=== PATIENT | male | born 1995 | race American Indian/Alaskan Native ===

== ENCOUNTER 2021-06-28 01:47 | Outpatient (CLI) | payer SELFPAY | END 2021-06-28 01:48 | disposition EMS.NT | LOC: EMS 01:47 | DX: M25.562 Pain in left knee (principal); M25.561 Pain in right knee; V49.9XXA Car occupant (driver) (passenger) injured in unspecified traffic accident, initial encounter; Y92.413 State road as the place of occurrence of the external cause ==

== ENCOUNTER 2022-06-10 02:29 | Emergency (ER) | payer SELFPAY ==
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
[2022-06-10] MEDS ORDERED: BACITRACIN ZINC OINT 1 PACKET TOP STA (03:53)
[2022-06-10 04:02] VITALS: BP 110/68
== END 2022-06-10 04:01 | disposition home or self-care (01) ==
LOC: ED 02:29
DX: T23.211A Burn of second degree of right thumb (nail), initial encounter (principal)
CPT/HCPCS: 99282; A9270

== ENCOUNTER 2022-08-20 21:31 | Emergency (ER) | payer MEDICAID ==
[2022-08-20 23:58] VITALS: BP 134/50
[2022-08-21] MEDS ORDERED: methocarbamoL 500 MG TABLET PO STA (00:56)
[2022-08-21] MEDS ORDERED: KETOROLAC 30 MG/ML VIAL IM STA (00:56)
--- NOTE | 2022-08-21 00:56 | ED Physician Documentation ---
History of Present Illness - Stated complaint Stated Complaint: BACK PX - Chief complaint Chief Complaint: Back Pain - History obtained from History obtained from: Patient, Family (SO) - Additonal information Additional information: 27yM with history of back injury while moving furniture 3-4 months ago p/w acutely worsening pain keeping him from sleep this evening. Also noticed lump to L lower back while showering tonight. denies numbness/weakness or incontinence/retention, saddle anesthesia. he does endorse severe pain making it difficult to move around. Review of Systems Constitutional: denies: Fever, Chills Musculoskeletal: reports: Back pain. denies: Extremity pain Neurologic: denies: Focal weakness, Numbness PD PAST MEDICAL HISTORY - Past Medical History Cardiovascular: Valve disorder - Past Surgical History Past Surgical History: Yes Cardiovascular: Valve replacement - Present Medications Home Medications: Ambulatory Orders Medication Instructions Recorded Confirmed Aspirin [Aspirin EC] 81 mg PO DAILY 06/29/21 06/29/21 Aspirin [Sravan] 325 mg PO ONCE PRN 06/10/22 06/10/22 Ketorolac [Toradol] 10 mg PO Q6H PRN #30 tablet 08/21/22 - Allergies Allergies/Adverse Reactions: Allergies Allergy/AdvReac Type Severity Reaction Status Date / Time amoxicillin Allergy Hives Verified 08/20/22 21:45 - Social History Does the pt smoke?: Yes Smoking Status: Current every day smoker Does the pt drink ETOH?: Yes - Immunizations Immunizations are current?: Yes PD ED PE NORMAL - Vitals Vital signs reviewed: Yes - General General: Alert and oriented X 3, Other (uncomfortable appearing) - Back Back: No spinal TTP, Other (L lower back palpable muscle spasm along L paraspinal muscles) - Derm Derm: Normal color, Warm and dry - Extremities Extremities: Other (2+ BL DP pulses. normal movement. ambulatory with discomfort) Results - Vitals Vitals: Vital Signs - 24 hr 08/20/22 08/20/22 21:35 23:50 Temperature 36.7 C 36.6 C Heart Rate 68 94 Respiratory 18 18 Rate Blood Pressure 141/101 H 134/50 H O2 Saturation 100 96 Oxygen O2 Source Room air PD MEDICAL DECISION MAKING - ED course ED course: 27yM p/w acute on chronic back pain. On exam patient has no LE weakness, no neuro deficit. tender to light touch in L lower back region, with palpable knotted tissue. on POCUS, no fluid collection or cobblestoning to suggest infection. plan to dc with antiinflammatory therapy and pcp f/u. return precautions given. Departure - Departure Disposition: 01 Home, Self Care Clinical Impression: Back pain Condition: Good Instructions: ED Chronic Pain Management Prescriptions: Ketorolac [Toradol] 10 mg PO Q6H PRN #30 tablet PRN Reason: Pain Comments: You were seen in the ED for back pain ongoing for the past several months. Please follow up with a primary care provider and return to the ED if you have fever, numbness/weakness in the legs or groin area, or other new or worsening symptoms of concern to you. Paper script was printed out manually for toradol, an anti-inflammatory. Do not take within 4-6 hours of other NSAIDs.
== END 2022-08-21 01:08 | disposition home or self-care (01) ==
LOC: ED 21:31
DX: M54.50 Low back pain, unspecified (principal); G89.29 Other chronic pain; M62.830 Muscle spasm of back; Z95.2 Presence of prosthetic heart valve; Z79.82 Long term (current) use of aspirin; F17.200 Nicotine dependence, unspecified, uncomplicated
CPT/HCPCS: 96372; 99282; 99283; A9270

== ENCOUNTER 2022-12-25 09:25 | Outpatient (CLI) | payer MEDICAID | END 2022-12-25 09:26 | disposition critical access hospital (66) | LOC: EMS 09:25 | DX: R29.0 Tetany (principal); R07.89 Other chest pain; R61 Generalized hyperhidrosis | CPT/HCPCS: A0425; A0429; A0999 ==

== ENCOUNTER 2022-12-25 09:39 | Emergency (ER) | payer MEDICAID ==
--- NOTE | 2022-12-25 09:54 | ED Physician Documentation ---
PD HPI CHEST PAIN - Stated complaint Stated Complaint: CP - History obtained from History obtained from: Patient - History of Present Illness Timing - onset: Today, Last night Timing - onset during: Light activity Timing - details: Abrupt onset, Still present Quality: Aching Location: Substernal Radiation: No: Jaw, Neck Worsened by: Movement (of the right shoulder does elicit some pain in anterior shoulder.), Palpation. No: Exertion, Inspiration Associated symptoms: Nausea, Vomiting, Feeling faint / dizzy, General Weakness. No: Shortness of air, Palpitations Similar symptoms before: Has not had sx before Recently seen: Not recently seen Review of Systems Constitutional: reports: Myalgias. denies: Fever, Chills Nose: denies: Rhinorrhea / runny nose, Congestion Throat: denies: Sore throat Cardiac: denies: Chest pain / pressure, Palpitations Respiratory: denies: Dyspnea, Cough GI: reports: Abdominal Pain, Nausea, Vomiting, Diarrhea PD PAST MEDICAL HISTORY - Past Medical History Cardiovascular: Valve disorder (he had ASD repaired at age 9 without subsequent problems. No exertional chest pain nor dyspnea recent months. ) Respiratory: None Neuro: None Endocrine/Autoimmune: None GI: None - Past Surgical History Past Surgical History: Yes Cardiovascular: Valve replacement - Present Medications Home Medications: Ambulatory Orders Medication Instructions Recorded Confirmed Famotidine [Pepcid] 20 mg PO BID #20 tablet 12/25/22 Ondansetron Odt [Zofran] 4 mg TL Q6H PRN #10 tablet 12/25/22 Sucralfate [Carafate] 1 gm PO ACHS 5 Days #200 ml 12/25/22 - Allergies Allergies/Adverse Reactions: Allergies Allergy/AdvReac Type Severity Reaction Status Date / Time amoxicillin Allergy Hives Verified 12/25/22 09:51 - Social History Does the pt smoke?: Yes Smoking Status: Current every day smoker Does the pt drink ETOH?: Yes - Immunizations Immunizations are current?: Yes PD ED PE NORMAL - Vitals Vital signs reviewed: Yes - General General: Alert and oriented X 3, Well developed/nourished, Other (appears in discomfort, holding emesis bag. Mild pallor. ) - HEENT HEENT: Ears normal, Pharynx benign. No: Moist mucous membranes - Neck Neck: Supple, no meningeal sign, No adenopathy - Cardiac Cardiac: RRR, No murmur - Respiratory Respiratory: No respiratory distress, Clear bilaterally, Other (no chestwall tenderness. ) - Abdomen Abdomen: Normal bowel sounds, Soft, Non tender, Non distended - Derm Derm: Normal color, Warm and dry - Neuro Neuro: Alert and oriented X 3, No motor deficit, No sensory deficit Results - Vitals Vitals: Vital Signs - 24 hr 12/25/22 12/25/22 12/25/22 09:51 10:43 11:48 Temperature 36.6 C Heart Rate 64 64 68 Respiratory 22 18 18 Rate Blood Pressure 132/65 H 110/58 L 114/63 O2 Saturation 96 100 100 Oxygen O2 Source Room air - EKG (time done) 09:54 EKG releavant findings:: EKG personally interpreted by author of this note. Relevant findings are: rate 59. Rhythm: NSR [place]: Normal Intervals: Normal [place] QRS: Normal Ischemia: ST elevation c/w repol. No: ST depression Compare to prior EKG: Old EKG unavailable - Labs Labs: Laboratory Tests 12/25/22 12/25/22 12/25/22 10:07 10:07 10:07 WBC 8.7 RBC 5.26 Hgb 15.2 Hct 46.9 MCV 89.2 MCH 28.9 MCHC 32.4 RDW 14.0 Plt Count 337 MPV 9.7 Neut # (Auto) 6.4 Lymph # (Auto) 1.6 Gates # (Auto) 0.5 Eos # (Auto) 0.1 Baso # (Auto) 0.1 Absolute Nucleated RBC 0.00 Nucleated RBC % 0.0 D-Dimer Sodium 134 L Potassium 3.4 L Chloride 99 L Carbon Dioxide 17 L Anion Gap 18.0 H BUN 13 Creatinine 1.0 Estimated GFR (MDRD) 91 Glucose 116 H Calcium 9.2 Magnesium Total Bilirubin 1.4 H AST 34 ALT 21 Alkaline Phosphatase 68 Troponin I High Sens 4.0 B-Natriuretic Peptide Total Protein 7.6 Albumin 4.6 Globulin 3.0 Albumin/Globulin Ratio 1.5 Lipase 28 12/25/22 12/25/22 12/25/22 10:07 10:07 10:50 WBC RBC Hgb Hct MCV MCH MCHC RDW Plt Count MPV Neut # (Auto) Lymph # (Auto) Gates # (Auto) Eos # (Auto) Baso # (Auto) Absolute Nucleated RBC Nucleated RBC % D-Dimer < 200.0 L Sodium Potassium Chloride Carbon Dioxide Anion Gap BUN Creatinine Estimated GFR (MDRD) Glucose Calcium Magnesium 2.0 Total Bilirubin AST ALT Alkaline Phosphatase Troponin I High Sens B-Natriuretic Peptide 46 Total Protein Albumin Globulin Albumin/Globulin Ratio Lipase - Rads (name of study) chest xray Relevant Findings:: Prelim report reviewed, EMP independent interpretation of test (no acute pulmonary process. ), See rad report PD Medical Decision Making - ED course Complexity details: considered differential (he has nausea and vomting, with today feeling of dyspnea and then tingling and spasms in both arms/hands. Consider electrolyte abnormal, hyperventilation. May have some gastritis, and dark stool would give concern for bleeding gastritis. ), d/w patient, d/w family (friend) Reviewed Lab Results: His ECG shows faint ST elevations diffusely but with upsloping ST more consistent with early polarization. Chest xray is clear. I ordered and reviewed heart markers of Trop and BNP, which were okay. His blood count was normal at 15 hgb, so even if he did have some element of bleeding gastritis with dark stool. He did not have BM here, so not able to test it. Potassium minimally low at 3.4 and could have contribued to some of the hand and face tingling. More likely to think mainly of hyperventilation. ED course: He improved qiute readily with IV fluids and medications of Zofran and Famotidine, then PO Mylanta. These helped symptoms and he is feeling much better. The tingling in hands resolved fairly early on in the treatment. Departure - Departure Disposition: 01 Home, Self Care Clinical Impression: Chest discomfort, Hypokalemia, Hyperventilation Acute gastritis Qualifiers: Gastritis type: unspecified gastritis Gastritis bleeding: presence of bleeding unspecified Qualified Code(s): K29.00 - Acute gastritis without bleeding Condition: Stable Record reviewed to determine appropriate education?: Yes Instructions: ED Chest Pain Atypical Unkn Cause, ED Gastritis Follow-Up: HAILE KRAUSE DO [Primary Care Provider] - Prescriptions: Sucralfate [Carafate] 1 gm PO ACHS 5 Days #200 ml Famotidine [Pepcid] 20 mg PO BID #20 tablet Ondansetron Odt [Zofran] 4 mg TL Q6H PRN #10 tablet PRN Reason: Nausea / Vomiting Comments: Your EKG, chest x-ray, blood tests do not show any signs of heart or lung abnormalities. This includes pneumonia, collapsed lung, fluid around the lung, heart attack or injury, heart failure, blood clots. Your blood test also do not show any signs of pancreatitis or liver problems. Your electrolytes show just a mild low abnormality of the potassium (3.4 with normal being down to 3.5). This may have contributed some to the tingling in the hands but otherwise I think it was more volume related/dehydration along with some element of hyperventilation causing the tingling. It does sound like you have likely a irritation of the stomach (gastritis). I would suggest you eat bland food for the next couple of days. Rest at home today. Use ondansetron every 6 hours as needed for nausea. Foods with potassium in them would be good as well. Tylenol if needed for pains. Avoid alcohol, NSAIDs, spicy foods. I would suggest famotidine acid reducing medicine twice daily for the next 7 to 10 days. Also sacral fate to coat the stomach several times daily and before bed for the next 5 days or so. Recheck if not improved over the next few days. I sent your prescriptions to [facility] pharmacy. Forms: Activity restrictions Discharge Date/Time: 12/25/22 12:41
--- NOTE | 2022-12-25 10:10 | XRAY Report ---
PROCEDURE: Chest 1 View X-Ray INDICATIONS: Chest Pain TECHNIQUE: One view of the chest was acquired. COMPARISON: None. FINDINGS: Surgical changes and devices: Sternal wires are present including fractured second wire. Lungs and pleura: No pleural effusions or pneumothorax. Lungs are clear. Mediastinum: Mediastinal contours appear normal. Heart size is normal. Bones and chest wall: No suspicious bony lesions. Overlying soft tissues appear unremarkable. IMPRESSION: No acute pulmonary process. Reviewed by: Shiela Whitley MD on 12/25/2022 10:09 AM PDT Approved by: Shiela Whitley MD on 12/25/2022 10:09 AM PDT Station ID: [id number]
[2022-12-25 10:12] LABS: BASOPHILS # (AUTO) 0.1 10^3/uL (0.0-0.1); BASOPHILS % (AUTO) 0.7 %; EOSINOPHILS # (AUTO) 0.1 10^3/uL (0.0-0.7); EOSINOPHILS % (AUTO) 0.7 %; HCT - HEMATOCRIT 46.9 % (42.0-52.0); HGB - HEMOGLOBIN 15.2 g/dL (14.0-18.0); LYMPHOCYTES # (AUTO) 1.6 10^3/uL (1.5-3.5); LYMPHOCYTES % (AUTO) 18.5 %; MEAN CORPUSCULAR HEMOGLOBIN 28.9 pg (27.0-31.0); MEAN CORPUSCULAR HGB CONC 32.4 g/dL (32.0-36.0); MEAN CORPUSCULAR VOLUME 89.2 fL (80.0-94.0); MEAN PLATELET VOLUME 9.7 fL (7.4-11.4); MONOCYTES # (AUTO) 0.5 10^3/uL (0.0-1.0); MONOCYTES % (AUTO) 5.5 %; NEUTROPHILS # (AUTO) 6.4 10^3/uL (1.5-6.6); NEUTROPHILS % (AUTO) 74.3 %; PLT - PLATELET COUNT 337 10^3/uL (130-450); RED BLOOD COUNT 5.26 10^6/uL (4.70-6.10); WHITE BLOOD COUNT 8.7 x10^3/uL (4.8-10.8)
[2022-12-25] MEDS ORDERED: FAMOTIDINE 20 MG/2 ML VIAL IVP STA (10:28)
[2022-12-25] MEDS ORDERED: MAG HYDROX/AL HYDROX/SIMETH 30 ML UDC PO STA (10:28)
[2022-12-25] MEDS ORDERED: SODIUM CHLORIDE 0.9% 1,000 ML IV STA (10:28)
[2022-12-25 10:45] LABS: ALBUMIN 4.6 g/dL (3.2-5.5); ALBUMIN/GLOBULIN RATIO 1.5 (1.0-2.2); BILIRUBIN,TOTAL 1.4 mg/dL (0.2-1.0); CALCIUM 9.2 mg/dL (8.5-10.3); POTASSIUM 3.4 mmol/L (3.5-5.0); TOTAL PROTEIN 7.6 g/dL (6.7-8.2)
[2022-12-25] MEDS ORDERED: LACTATED RINGERS 1,000 ML IV STA (11:31)
[2022-12-25 11:49] VITALS: BP 114/63
== END 2022-12-25 12:41 | disposition home or self-care (01) ==
LOC: EDBD → EDUNIT# → ED 09:39
DX: R07.89 Other chest pain (principal); K29.00 Acute gastritis without bleeding; E87.6 Hypokalemia; R06.4 Hyperventilation; F17.200 Nicotine dependence, unspecified, uncomplicated
CPT/HCPCS: 36415; 71045; 80053; 83690; 83735; 83880; 84484; 85025; 85379; 93005; 96361; 96374; 99284; A9270; J7120